=== PATIENT | male | born 1990 | race African-American/Black ===

== ENCOUNTER 2023-06-15 05:15 | Inpatient (IN) | payer OTHER, SELFPAY ==
[2023-06-15] VITALS (11 sets, daily range): BP systolic 101–135; BP diastolic 53–88; PULSE 62–94; RESP 15–20; TEMP 36.6–36.8; O2SAT 92–99; BMI 22.3
--- NOTE | ~2023-06-15 | XR_ITS ---
EXAMINATION: XR CHEST CLINICAL INFORMATION: Chest pain. Leukocytosis. COMPARISON: None available. TECHNIQUE: Frontal view of the chest was obtained. FINDINGS: The lung volumes are low. The cardiomediastinal silhouette is grossly within normal limits. There is a small faint left lung base opacity. The right lung is clear. There are no significant pleural effusion. The bony structures and soft tissues are unremarkable. XR/XR chest 1V IMPRESSION: Small faint left lung base opacity probably atelectasis. Early infiltrate considered less likely.
[2023-06-15] MEDS: 0.9 % Sodium Chloride 1,000 ML 999 ML IV (06:13)
[2023-06-15 06:19] LABS: Hematocrit 21.2 % (42.0-52.0); Hemoglobin 7.4 g/dl (14.0-18.0); Mean Corpuscular HGB Conc 34.9 g/dl (31.0-36.0); Mean Corpuscular Hemoglobin 31.2 pg (27.0-33.0); Mean Corpuscular Volume 89.5 fL (80.0-98.0); Mean Platelet Volume 9.6 fL (9.4-12.4); NRBC Pct Auto 0.9 /100WBC (0.0-0.2); Platelet Count 294 X10*3/uL (160-400); Red Blood Count 2.37 X10*6/uL (4.60-5.80); Red Cell Distribution Width 23.5 % (11.0-16.0); White Blood Count 14.1 X10*3/uL (4.8-10.8)
[2023-06-15 06:20] LABS: Alanine Aminotransferase 22 U/L (0-40); Albumin Level 4.3 g/dL (3.5-5.0); Alkaline Phosphatase 62 U/L (39-117); Anion Gap 14 (12-20); Aspartate Amino Transferase 52 U/L (5-37); Bilirubin Total 2.5 mg/dL (0.0-1.0); Blood Urea Nitrogen 9 mg/dL (9-16); Calcium 9.3 mg/dL (8.4-10.2); Carbon Dioxide 21 mmol/L (22-29); Chloride 106 mmol/L (96-108); Creatinine Clr Calc Pharmacy 130.3; Estimated Glomerular Filt Rate > 60; Glucose Random 113 mg/dL (60-115); Potassium 3.6 mmol/L (3.3-5.1); Sodium 137 mmol/L (135-145); Total Protein 8.5 g/dL (6.5-8.0)
--- NOTE | 2023-06-15 06:33 | PC.NURSE ---
Pt heard yelling from inside of room stating wheres the [place] run doctor, i need some pain medicine, come on! Upon arrival to room pt pacing and Advised that physician is away from desk with another pt at this time and will be with him as soon as possible and states i need to see the yolande doctor now! Pt again advised that a provider will be in as soon as they can and pt back to bed. Provider to be made aware of pt outburst.
--- OUTSIDE RECORDS SUMMARY | 2023-06-15 06:39 | XMS_ITS | Summary of Care ---
/Man Author Name Unknown Organization [facility] Address [address] [place] [address]- [facility] [phone] Care Team Providers Care Computer Tape Librarian Name Role Phone Physician, Nopcp Primary Care Physician Unavaila ble Encounter [facility] [id number] Date(s): 12/24/21 - 12/25/[address] Discharge Disposition: Home Attending Physician: Jerri Canela DO Allergies, Adverse Reactions, Alerts No Known Allergies Social History Social History Type Response
[2023-06-15 06:54] LABS: Basophils Abs Manual 0.1 X10*3/uL (0.0-0.2); Basophils Percent Manual 1 % (0-2); Eosinophils Absolute Manual 0.3 X10*3/uL (0.0-0.4); Eosinophils Percent Manual 2 % (0-4); Lymphocytes Absolute Manual 8.5 X10*3/uL (1.2-4.9); Lymphocytes Percent Manual 60 % (20-40); Monocytes Absolute Manual 0.6 X10*3/uL (0.1-1.2); Monocytes Percent Manual 4 % (2-11); Neutrophils Percent Manual 33 % (45-73)
[2023-06-15 06:55] LABS: Band Neutrophils Percent 0 % (3-5); Neutrophils Absolute Manual 4.7 X10*3/uL (2.0-8.3); Nucleated Red Blood Cells 2 /100WBC (0-0)
[2023-06-15 06:57] LABS: Microcytosis 1+ (5-14) /OIF; RBC Morphology NOTED
[2023-06-15 06:58] LABS: Howell Jolly Bodies PRESENT; Hypochromasia 1+ (5-14) /OIF; Platelet Estimate NORMAL (NORMAL); Platelet Morphology Comment NORMAL; Polychromasia 1+ (0-2) /OIF; Sickle Cells 3+ (>5) /OIF; Target Cells 1+ (5-14) /OIF
--- NOTE | 2023-06-15 06:59 | ED_ITS ---
HPI - General Adult General Chief complaint: General Medical Stated complaint: Sickle cell crisis Time Seen by Provider: 06/15/23 05:54 Source: patient Mode of arrival: ambulatory Limitations: no limitations Related Data Home Medications Medication Instructions Recorded Confirmed folic acid 0.8 mg capsule 0.8 mg PO DAILY 06/15/23 06/15/23 hydromorphone 8 mg tablet 16 mg PO Q8H 06/15/23 06/15/23 multivitamin 1 tab PO DAILY 06/15/23 06/15/23 oxycodone 60 mg tablet,crush 60 mg PO BID 06/15/23 06/15/23 resistant,extended release 12 hr (OxyContin) Allergies Allergy/AdvReac Type Severity Reaction Status Date / Time No Known Allergies Allergy Verified 06/15/23 05:27 Review of Systems 2 Review of Systems: Constitutional : No Weight loss, No Fever, No Chills, No Fatigue, No Malaise ENT/Mouth : No sore throat, No Rhinorrhea Eyes: No Eye Pain, No Swelling, No Redness Cardiovascular : No Chest Pain, No SOB, No Dyspnea on Exertion, No Orthopnea, No Edema, No Palpitations Respiratory : No Cough, No Sputum, No Wheezing Gastrointestinal : No Nausea, No Vomiting, No Diarrhea, No Constipation, No abdominal Pain, No Hematochezia, No Melena Genitourinary : No Dysuria, No Urinary Frequency, No Hematuria, Musculoskeletal : No joint pain, No Myalgias, No Joint Swelling Skin : No Skin Lesions, No rash Neuro : No Weakness, No Numbness, No Dizziness, No Headache Psych : No Anxiety/Panic, No Depression All other systems reviewed and are negative Yes all other systems are reviewed and are negative [facility] Past Medical History Attestation statement: The following information was validated with the patient. Source: old records reviewed and nursing notes reviewed Medical History Functional asplenia Sickle cell anemia with crisis Social History Social History Household Members: Family Housing: House Do you presently have visiting nurse or other home services: No Patient Tobacco Use Status: Never used Tobacco service: No Physical Exam ED Vital Signs: Vital Signs - 24 hr 06/15/23 05:27 06/15/23 05:32 06/15/23 07:13 Pulse Rate 76 85 80 Respiratory Rate 20 15 18 Blood Pressure 125/76 121/67 121/72 Pulse Oximetry 96 95 97 Oxygen Delivery Method Room Air Room Air Room Air BMI result Body Mass Index 22.3 vss Appearance: Alert.? Oriented X3.? No acute distress.? Head: Normocephalic, atraumatic, no step-offs or deformities Eyes: Pupils equal, round and reactive to light.?+ b/l sclera w/ icterus Neck: Normal inspection.? Neck supple.? CVS: Normal heart rate and rhythm.? Pulses normal.? Respiratory: No respiratory distress.? Breath sounds normal.? Abdomen: Soft and nontender.? Skin: Skin warm and dry.? Normal skin color.? Normal skin turgor.? Extremities: No lower extremity edema.? No calf ttp. 5/5 strength to bilateral upper and lower extremities Neuro: Oriented X 3.? No motor deficit.? No sensory deficit. CN 2-12 intact Course Reevaluation(s) Reevaluation #1: CBC w/ leukocytosis, lymphocyte predominance. Reticulocyte count elevated consistent with acute sickle cell crisis. Chemistry with elevated bilirubin, no other acute findings. Normal lactic acid. UA clean. X-ray with question atelectasis versus pneumonia . Due to leukocytosis and history of sickle cell disease will cover with 2 g of ceftriaxone at this time Time: 08:30 Medications Administered Generic Name Dose Route Start Last Admin Trade Name Freq PRN Reason Stop Dose Admin Diphenhydramine HCl 50 mg 06/15/23 11:15 06/17/23 06:05 Diphenhydramine Hcl 50 Mg/Ml Vial IVPUSH 50 mg Q4H PRN Administration Itching Hydromorphone HCl 5 mg 06/15/23 11:15 06/17/23 06:11 Hydromorphone Hcl 2 Mg/Ml Vial IVPUSH 5 mg Q2H PRN Administration Pain, Severe (Pain Scale 7-10) Protocol Sodium Chloride 1,000 mls @ 125 mls/hr 06/15/23 11:30 06/17/23 06:19 Ns IVCONT 125 mls/hr .Q8H SILVIA Administration Ketorolac Tromethamine 30 mg 06/15/23 11:15 06/17/23 06:15 Ketorolac Tromethamine 30 Mg/Ml Vial IVPUSH 06/20/23 05:16 30 mg Q6H SILVIA Administration Multivitamins/Vitamin C 1 tab 06/16/23 09:00 06/16/23 11:11 Multivitamin Tablet PO 1 tab DAILY SILVIA Administration Oxycodone HCl 60 mg 06/15/23 11:30 06/16/23 20:20 Oxycodone Hcl Er 10 Mg Tab.Er.12h PO 60 mg BID SILVIA Administration Sodium Chloride 3 ml 06/15/23 16:00 06/17/23 07:13 0.9 % Sodium Chloride Flush 3 Ml Syringe IVFLUSH Not Given QSHIFT SILVIA Discontinued Medications Generic Name Dose Route Start Last Admin Trade Name Freq PRN Reason Stop Dose Admin Diphenhydramine HCl 25 mg 06/15/23 06:48 06/15/23 07:07 Diphenhydramine Hcl 50 Mg/Ml Vial IVPUSH 06/15/23 06:49 25 mg ONCE ONE Administration Diphenhydramine HCl 25 mg 06/15/23 07:02 06/15/23 07:08 Diphenhydramine Hcl 50 Mg/Ml Vial IVPUSH 06/15/23 07:03 25 mg ONCE ONE Administration Hydromorphone HCl 2 mg 06/15/23 06:56 06/15/23 07:08 Hydromorphone Hcl 2 Mg/Ml Vial IVPUSH 06/15/23 06:57 2 mg ONCE ONE Administration Protocol Hydromorphone HCl 2 mg 06/15/23 07:18 06/15/23 07:31 Hydromorphone Hcl 2 Mg/Ml Vial IVPUSH 06/15/23 07:19 2 mg ONCE ONE Administration Protocol Hydromorphone HCl 4 mg 06/15/23 08:52 06/15/23 09:08 Hydromorphone Hcl 2 Mg/Ml Vial IVPUSH 06/15/23 08:53 4 mg ONCE ONE Administration Protocol Sodium Chloride 1,000 mls @ 999 mls/hr 06/15/23 06:00 06/15/23 07:52 Ns IV 06/15/23 07:00 Infused .Q1H1M SILVIA Infusion Ceftriaxone Sodium 2 gm/ 50 mls @ 100 mls/hr 06/15/23 06:48 06/15/23 08:26 Sodium Chloride IV 06/15/23 07:17 Infused ONCE ONE Infusion Influenza Virus Vaccine 0.5 ml 06/15/23 15:25 06/15/23 16:20 Flu Vacc [id number](6mos Up)/Pf 0.5 Ml Syringe IM 06/15/23 15:26 0.5 ml .ONCE ONE Administration Medical Decision Making Medical Decision Making [facility] Narrative: 0700 33 yo m presents w/ diffuse body pain X 2 days PE- icteric sclera b/l. Sickle cell crisis versus fibromyalgia and a versus viral illness. Will rule out metabolic derangements, infection although unlikely Plan labs, imaging, urine. Patient states he is on a medication care plan at of [facility] where they treat him with 50mg of benadryl and 6 mg of IV dilauded - unable to provide documentation of care plan at this time ( looking for it on his phone) requested records from [facility] patient was seen there at last night and left AMA because the wait was to long had labs done which showed leukocytosis, hyperbili and elevated retic count Differential Diagnosis Differential Diagnoses: The differential diagnosis associated with the presentation includes Sickle cell crisis versus fibromyalgia and a versus viral illness. Will rule out metabolic derangements, infection although unlikely Admission/Observation Consideration of admission/observation: Escalation of care including admission/observation considered Likely Consult Healthcare Provider Management of the patient was discussed with: Hospitalist Lab Data [facility] Lab Attestation statement: I reviewed the patient's lab results. 06/16/23 09:29 06/16/23 09:29 Labs: Lab Results 06/15/23 06/15/23 06/15/23 Range/Units 05:56 05:57 07:26 WBC 14.1 H (4.8-10.8) X10*3/uL RBC 2.37 L (4.60-5.80) X10*6/uL Hgb 7.4 L (14.0-18.0) g/dl Hct 21.2 L (42.0-52.0) % MCV 89.5 (80.0-98.0) fL MCH 31.2 (27.0-33.0) pg MCHC 34.9 (31.0-36.0) g/dl RDW 23.5 H (11.0-16.0) % Plt Count 294 (160-400) X10*3/uL MPV 9.6 (9.4-12.4) fL Immature Gran % (Auto) Cancelled Neut % (Auto) Cancelled Lymph % (Auto) Cancelled [place] % (Auto) Cancelled Eos % (Auto) Cancelled Baso % (Auto) Cancelled Lymph # (Auto) Cancelled [place] # (Auto) Cancelled Eos # (Auto) Cancelled Baso # (Auto) Cancelled Abs Immat Gran (auto) Cancelled Absolute Neuts (auto) Cancelled Absolute Nucleated RBC 0.120 H (0.0-0.012) X10*3/uL Nucleated RBC % (auto) 0.9 H (0.0-0.2) /100WBC Neutrophils % (Manual) 33 L (45-73) % Band Neutrophils % 0 L (3-5) % Lymphocytes % (Manual) 60 H (20-40) % Monocytes % (Manual) 4 (2-11) % Eosinophils % (Manual) 2 (0-4) % Basophils % (Manual) 1 (0-2) % Abs Neuts (Manual) 4.7 (2.0-8.3) X10*3/uL Lymphocytes # (Manual) 8.5 H (1.2-4.9) X10*3/uL Monocytes # (Manual) 0.6 (0.1-1.2) X10*3/uL Eosinophils # (Manual) 0.3 (0.0-0.4) X10*3/uL Basophils # (Manual) 0.1 (0.0-0.2) X10*3/uL Nucleated RBCs 2 H (0-0) /100WBC Platelet Estimate NORMAL (NORMAL) Plt Morphology Comment NORMAL RBC Morphology NOTED Polychromasia 1+ (0-2) /OIF Hypochromasia 1+ (5-14) /OIF Microcytosis 1+ (5-14) /OIF Sickle Cells 3+ (>5) /OIF Target Cells 1+ (5-14) /OIF [place]amy[place] Bodies PRESENT Smear Path Review SEE NOTE Absolute Retic 0.241 H (0.026-0.095) X10*6/uL Percent Retic 10.5 H (0.5-1.8) % Immature Retic Fraction 34.3 H (2.3-13.4) % Retic Hgb Equivalent 29.1 L (30.0-35.0) pg Sodium 137 (135-145) mmol/L Potassium 3.6 (3.3-5.1) mmol/L Chloride 106 (96-108) mmol/L Carbon Dioxide 21 L (22-29) mmol/L Anion Gap 14 (12-20) BUN 9 (9-16) mg/dL Creatinine 0.82 (0.5-1.4) mg/dL Estim Creat Clear Calc 130.3 Estimated GFR > 60 Random Glucose 113 (60-115) mg/dL Lactic Acid 0.8 (0.5-2.0) mmol/L Calcium 9.3 (8.4-10.2) mg/dL Total Bilirubin 2.5 H (0.0-1.0) mg/dL AST 52 H (5-37) U/L ALT 22 (0-40) U/L Alkaline Phosphatase 62 (39-117) U/L Total Creatine Kinase 119 (38-174) U/L Total Protein 8.5 H (6.5-8.0) g/dL Albumin 4.3 (3.5-5.0) g/dL Procalcitonin 0.08 ng/mL Urine Color Urine Appearance Urine pH (5.0-9.0) Ur Specific [place] (1.005-1.025) Urine Protein (Neg-Trace) mg/dL Urine Glucose (UA) (Negative) mg/dL Urine Ketones (Negative) mg/dL Urine Blood (Negative) Urine Nitrite (Negative) Ur Leukocyte Esterase (Negative) Urine RBC (0-2) /HPF Urine WBC (0-5) /HPF Ur Squamous Epith Cells (0-2) /HPF Urine Bacteria (None Seen) Hyaline Casts (0-2) /LPF 06/15/23 Range/Units 07:41 WBC (4.8-10.8) X10*3/uL RBC (4.60-5.80) X10*6/uL Hgb (14.0-18.0) g/dl Hct (42.0-52.0) % MCV (80.0-98.0) fL MCH (27.0-33.0) pg MCHC (31.0-36.0) g/dl RDW (11.0-16.0) % Plt Count (160-400) X10*3/uL MPV (9.4-12.4) fL Immature Gran % (Auto) Neut % (Auto) Lymph % (Auto) [place] % (Auto) Eos % (Auto) Baso % (Auto) Lymph # (Auto) [place] # (Auto) Eos # (Auto) Baso # (Auto) Abs Immat Gran (auto) Absolute Neuts (auto) Absolute Nucleated RBC (0.0-0.012) X10*3/uL Nucleated RBC % (auto) (0.0-0.2) /100WBC Neutrophils % (Manual) (45-73) % Band Neutrophils % (3-5) % Lymphocytes % (Manual) (20-40) % Monocytes % (Manual) (2-11) % Eosinophils % (Manual) (0-4) % Basophils % (Manual) (0-2) % Abs Neuts (Manual) (2.0-8.3) X10*3/uL Lymphocytes # (Manual) (1.2-4.9) X10*3/uL Monocytes # (Manual) (0.1-1.2) X10*3/uL Eosinophils # (Manual) (0.0-0.4) X10*3/uL Basophils # (Manual) (0.0-0.2) X10*3/uL Nucleated RBCs (0-0) /100WBC Platelet Estimate (NORMAL) Plt Morphology Comment RBC Morphology Polychromasia /OIF Hypochromasia /OIF Microcytosis /OIF Sickle Cells /OIF Target Cells /OIF [place] Bodies Smear Path Review Absolute Retic (0.026-0.095) X10*6/uL Percent Retic (0.5-1.8) % Immature Retic Fraction (2.3-13.4) % Retic Hgb Equivalent (30.0-35.0) pg Sodium (135-145) mmol/L Potassium (3.3-5.1) mmol/L Chloride (96-108) mmol/L Carbon Dioxide (22-29) mmol/L Anion Gap (12-20) BUN (9-16) mg/dL Creatinine (0.5-1.4) mg/dL Estim Creat Clear Calc Estimated GFR Random Glucose (60-115) mg/dL Lactic Acid (0.5-2.0) mmol/L Calcium (8.4-10.2) mg/dL Total Bilirubin (0.0-1.0) mg/dL AST (5-37) U/L ALT (0-40) U/L Alkaline Phosphatase (39-117) U/L Total Creatine Kinase (38-174) U/L Total Protein (6.5-8.0) g/dL Albumin (3.5-5.0) g/dL Procalcitonin ng/mL Urine Color Yellow Urine Appearance Clear Urine pH 6.5 (5.0-9.0) Ur Specific [place] 1.010 (1.005-1.025) Urine Protein 30 (1+) H (Neg-Trace) mg/dL Urine Glucose (UA) Negative (Negative) mg/dL Urine Ketones Negative (Negative) mg/dL Urine Blood Trace H (Negative) Urine Nitrite Negative (Negative) Ur Leukocyte Esterase Negative (Negative) Urine RBC 3-5 H (0-2) /HPF Urine WBC 0-5 (0-5) /HPF Ur Squamous Epith Cells 0-2 (0-2) /HPF Urine Bacteria None Seen (None Seen) Hyaline Casts 0-2 (0-2) /LPF Independent Interpretation I performed an independent interpretation of an: Plain X-Ray ( XR/XR chest 1V IMPRESSION: Small faint left lung base opacity probably atelectasis. Early infiltrate considered less likely. ) Radiology Impression Discussion of test interpretation with radiology: I have reviewed the radiologist's reading. External Record Review External record reviewed: Inpatient record, Office record, Outpatient record, Prior outpatient labs, Prior outpatient radiology, Primary care record and Outside ED record Chronic Conditions Patient?s care impacted by: Other (SCD) Critical Care Time Critical Care Time Critical Care Time: Yes Total Critical Care Time: 35 Attestation: I attest to this time spent taking care of the patient, obtaining history, physical, reviewing labs, imaging, speaking to my attending, Discharge Plan Discharge Clinical Impression: Sickle cell anemia with crisis Patient Disposition: Admitted As Inpatient Interventions: Admission Worksheet (ED) Last Done: 06/15/23 15:07 Discharge Date/Time: 06/15/23 15:08
--- NOTE | 2023-06-15 06:59 | MHC.EDTECH ---
THIS PCT ATTEMPT TO DRAW ,PATIENT LACTIC AND BLOOD CULTURE ,BUT PATIENT REFUSED AT THIS TIME ,STATED HE WANTS HIS PAIN MEDS BEFORE BEING POKED ,BHARGAV SERRA AWARE .
[2023-06-15 07:05] LABS: Immature Retic Fraction 34.3 % (2.3-13.4); Retic HGB Equivalent 29.1 pg (30.0-35.0); Reticulocytes Absolute 0.241 X10*6/uL (0.026-0.095)
[2023-06-15 07:06] LABS: Reticulocyte Percent 10.5 % (0.5-1.8)
[2023-06-15] MEDS: diphenhydrAMINE HCL 50 MG/ML VIAL 25 MG IVPUSH ×2 (07:07→07:08)
[2023-06-15] MEDS: HYDROmorphone HCl 2 MG/ML VIAL IVPUSH ×2 (07:08→07:31)
--- NOTE | 2023-06-15 07:20 | PC.NURSE ---
pt is alert and oriented, skin appropriate for ethnicity, respirations even and unlabored, pt reports generalized body pain do to his sickle cell dx, pt just moved this direction from [place], pt usually gets care at [facility]- pt was able to pull up his care plan on his phone and this short story writer showed it to Gilda HANNAH, pt receives Benadryl 50mg, diulated 5mg, torodal 30mg, and NS for his pain/crisis flare ups. vs stable at this time
[2023-06-15 07:40] LABS: Lactic Acid 0.8 mmol/L (0.5-2.0)
[2023-06-15] MEDS: cefTRIAXone sodium 2 GM in 0.9 % Sodium Chloride 50 ML IV (07:48)
[2023-06-15 07:53] LABS: Appearance Urine Clear; Color Urine Yellow; Glucose Urine UA Negative (Negative); Leukocyte Esterase Urine Negative (Negative); Nitrite Urine Negative (Negative); PH 6.5 (5.0-9.0); UMIC TRIGGER UACC YES; Urine Blood Trace (Negative); Urine Ketones Negative (Negative); Urine Protein 30 (1+) mg/dL (Neg-Trace)
[2023-06-15 08:05] LABS: Bacteria Urine None Seen (None Seen); Hyaline Casts Urine 0-2 /LPF (0-2); Squamous Epithelial Cell Urine 0-2 /HPF (0-2); WBC Urine 0-5 /HPF (0-5)
--- NOTE | 2023-06-15 09:05 | PC.NURSE ---
pt started to scream at staff/provider that he needs his pain medication right now, this editorial writer explained to the pt that this behavior is extremely inappropriate, pt actually apologized to this rn pt shortly medicated with pain medications pt oxygen level dropped a little even prior to administering the pain medication sating art 92% on room air, pt put on 2l via nasal cannual and sating at 95%
[2023-06-15] MEDS: HYDROmorphone HCl 2 MG/ML VIAL 4 MG IVPUSH (09:08)
--- NOTE | 2023-06-15 09:53 | PHA.MEDREC ---
Pharmacy Consult ? Medication Reconciliation Pharmacy has completed the medication reconciliation. Spoke to patient, asked about OxyContin, he said he takes 60mg BID despite recent claim history for 40mg on 06/13/23. Previous fill was for 60mg in April. Pt also states taking 16mg hydromorphone Q8H
--- NOTE | 2023-06-15 10:27 | PC.NURSE ---
pt is currently sleeping, respirations even and unlabored
--- NOTE | 2023-06-15 11:17 | P.HPHOSP_ITS ---
History of Present Illness Date of Service: 06/15/23 Attending physician on admission: Madhavi Schmidt Chief Complaint: Sickle cell crisis Pt is a 33-year-old male with a PMH significant for?sickle cell anemia, who presents to the ED with? In the ED patient was afebrile with pulse solids 94, normotensive, and satting 97% on RA. Labs were significant for leukocytosis of 14.4, H&H 7.4/21.2, absolute reticulocytes 0.241, % reticulocytes 10.5, T bili 2 point, AST 52. Electrolytes WNL. Renal function WNL. Lactic acid WNL at 0 8. UA negative for UTI. CXR showed small faint left lung base opacity probably atelectasis with early infiltrate less likely. Pt was treated with IVF, Benadryl 25 mg x 2 doses; Dilaudid 2 mg x 2 doses and 4 mg x 1 dose, ceftriaxone 2 g. Pt will be admitted to the hospital [facility] Social History Smoked in Last 30 Days: No Use of substances other than those prescribed or required for medical reasons: No Advance Directives: No Advance Directives Information Provided: Yes Meds Allergies Allergy/AdvReac Type Severity Reaction Status Date / Time No Known Allergies Allergy Verified 06/15/23 05:27 Home Medications Medication Instructions Recorded Confirmed Last Taken Type folic acid 0.8 mg capsule 0.8 mg PO DAILY 06/15/23 06/15/23 Unknown History hydromorphone 8 mg tablet 16 mg PO Q8H 06/15/23 06/15/23 Unknown History multivitamin 1 tab PO DAILY 06/15/23 06/15/23 Unknown History oxycodone 60 mg tablet,crush 60 mg PO BID 06/15/23 06/15/23 Unknown History resistant,extended release 12 hr (OxyContin) Physical Exam 2 Vital Signs and Narrative: Vital Signs: Last Vital Signs Temp 98.0 F 06/15/23 10:51 Pulse 87 06/15/23 10:51 Resp 16 06/15/23 10:51 BP 123/69 06/15/23 10:51 Pulse Ox 99 06/15/23 10:51 O2 Del Method Room Air, Nasal C annula 06/15/23 10:51 O2 Flow Rate 2 06/15/23 10:51 BMI result Body Mass Index 22.3 Results Labs 06/15/23 05:57 06/15/23 05:56 Labs: Laboratory Results - last 24 hr 06/15/23 06/15/23 06/15/23 05:56 05:57 07:26 MCV 89.5 MCH 31.2 MCHC 34.9 RDW 23.5 H Plt Count 294 MPV 9.6 Immature Gran % (Auto) Cancelled Neut % (Auto) Cancelled Lymph % (Auto) Cancelled [place] % (Auto) Cancelled Eos % (Auto) Cancelled Baso % (Auto) Cancelled Lymph # (Auto) Cancelled [place] # (Auto) Cancelled Eos # (Auto) Cancelled Baso # (Auto) Cancelled Abs Immat Gran (auto) Cancelled Absolute Neuts (auto) Cancelled Absolute Nucleated RBC 0.120 H Nucleated RBC % (auto) 0.9 H Neutrophils % (Manual) 33 L Band Neutrophils % 0 L Lymphocytes % (Manual) 60 H Monocytes % (Manual) 4 Eosinophils % (Manual) 2 Basophils % (Manual) 1 Abs Neuts (Manual) 4.7 Lymphocytes # (Manual) 8.5 H Monocytes # (Manual) 0.6 Eosinophils # (Manual) 0.3 Basophils # (Manual) 0.1 Nucleated RBCs 2 H Platelet Estimate NORMAL Plt Morphology Comment NORMAL RBC Morphology NOTED Polychromasia 1+ (0-2) Hypochromasia 1+ (5-14) Microcytosis 1+ (5-14) Sickle Cells 3+ (>5) Target Cells 1+ (5-14) [place] Bodies PRESENT Absolute Retic 0.241 H Percent Retic 10.5 H Immature Retic Fraction 34.3 H Retic Hgb Equivalent 29.1 L Anion Gap 14 Estim Creat Clear Calc 130.3 Estimated GFR > 60 Random Glucose 113 Lactic Acid 0.8 Calcium 9.3 Total Bilirubin 2.5 H AST 52 H ALT 22 Alkaline Phosphatase 62 Total Creatine Kinase 119 Total Protein 8.5 H Albumin 4.3 Urine Color Urine Appearance Urine pH Ur Specific [place] Urine Protein Urine Glucose (UA) Urine Ketones Urine Blood Urine Nitrite Ur Leukocyte Esterase Urine RBC Urine WBC Ur Squamous Epith Cells Urine Bacteria Hyaline Casts 06/15/23 07:41 MCV MCH MCHC RDW Plt Count MPV Immature Gran % (Auto) Neut % (Auto) Lymph % (Auto) [place] % (Auto) Eos % (Auto) Baso % (Auto) Lymph # (Auto) [place] # (Auto) Eos # (Auto) Baso # (Auto) Abs Immat Gran (auto) Absolute Neuts (auto) Absolute Nucleated RBC Nucleated RBC % (auto) Neutrophils % (Manual) Band Neutrophils % Lymphocytes % (Manual) Monocytes % (Manual) Eosinophils % (Manual) Basophils % (Manual) Abs Neuts (Manual) Lymphocytes # (Manual) Monocytes # (Manual) Eosinophils # (Manual) Basophils # (Manual) Nucleated RBCs Platelet Estimate Plt Morphology Comment RBC Morphology Polychromasia Hypochromasia Microcytosis Sickle Cells Target Cells [place] Bodies Absolute Retic Percent Retic Immature Retic Fraction Retic Hgb Equivalent Anion Gap Estim Creat Clear Calc Estimated GFR Random Glucose Lactic Acid Calcium Total Bilirubin AST ALT Alkaline Phosphatase Total Creatine Kinase Total Protein Albumin Urine Color Yellow Urine Appearance Clear Urine pH 6.5 Ur Specific [place] 1.010 Urine Protein 30 (1+) H Urine Glucose (UA) Negative Urine Ketones Negative Urine Blood Trace H Urine Nitrite Negative Ur Leukocyte Esterase Negative Urine RBC 3-5 H Urine WBC 0-5 Ur Squamous Epith Cells 0-2 Urine Bacteria None Seen Hyaline Casts 0-2 Imaging Radiologist's Impressions: Impressions Chest X-Ray 06/15/23 07:45 IMPRESSION: Small faint left lung base opacity probably atelectasis. Early infiltrate considered less likely. Assessment and Plan Time Spent With Patient Time: Total time managing care of this patient today ____ minutes.
--- NOTE | 2023-06-15 11:46 | PM.IMHP ---
History of Present Illness Date of Service: 06/15/23 Chief Complaint: back/leg pain 33yo M with sickle cell disease and functional asplenia who was recently admitted to [facility] 05/28-06/10 for vaso-occlusive pain crisis. He has outpatient and inpatient pain management plans documented in [facility], to which I have access. He recently moved to [place] and presents today with 2 days of worsening upper and lower back as well as bilateral leg pain. No fever, chills, cough, congestion, sore throat, dyspnea, nausea, vomiting, or diarrhea. No chest pain. His baseline Hb is around 6.5-7 and his transfusion threshold is 5. He is intolerant of hydroxyurea due to skin ulcers. In the ED, he was found to have Hb 7.4 with 10.5% reticulocytes. Total bilirubin 2.5. AST 52, ALT 22. He was given 1L IV NS, 2g of IV ceftriaxone, 25mg of IV diphenhydramine x2, and total of 8mg of IV hydromorphone. Review of Systems Review of Systems: Yes all other systems are reviewed and are negative [facility] Medical History Functional asplenia Sickle cell anemia with crisis Social History Smoked in Last 30 Days: No Use of substances other than those prescribed or required for medical reasons: No Advance Directives: No Advance Directives Information Provided: Yes Meds Allergies Allergy/AdvReac Type Severity Reaction Status Date / Time No Known Allergies Allergy Verified 06/15/23 05:27 Active Medications: Current Medications Acetaminophen (Acetaminophen 325 Mg Tablet) 975 mg PO Q6H PRN PRN Reason: mild-moderate pain Diphenhydramine HCl (Diphenhydramine Hcl 50 Mg/Ml Vial) 50 mg IVPUSH Q4H PRN PRN Reason: Itching Hydromorphone HCl (Hydromorphone Hcl 2 Mg/Ml Vial) 5 mg IVPUSH Q2H PRN; Protocol PRN Reason: Pain, Severe (Pain Scale 7-10) Sodium Chloride (Ns) 1,000 mls @ 125 mls/hr IVCONT .Q8H [facility] Ketorolac Tromethamine (Ketorolac Tromethamine 30 Mg/Ml Vial) 30 mg IVPUSH Q6H [facility] Stop: 06/20/23 05:16 Multivitamins/Vitamin C (Multivitamin Tablet) 1 tab PO DAILY [facility] Ondansetron HCl (Ondansetron Hcl 4 Mg/2 Ml Vial) 4 mg IVPUSH Q6H PRN PRN Reason: Nausea and Vomiting Oxycodone HCl (Oxycodone Hcl Er 10 Mg Tab.Er.12h) 60 mg PO BID [facility] Sodium Chloride (0.9 % Sodium Chloride Flush 3 Ml Syringe) 3 ml IVFLUSH QSHIFT [facility] Home Medications Medication Instructions Recorded Confirmed Last Taken Type folic acid 0.8 mg capsule 0.8 mg PO DAILY 06/15/23 06/15/23 Unknown History hydromorphone 8 mg tablet 16 mg PO Q8H 06/15/23 06/15/23 Unknown History multivitamin 1 tab PO DAILY 06/15/23 06/15/23 Unknown History oxycodone 60 mg tablet,crush 60 mg PO BID 06/15/23 06/15/23 Unknown History resistant,extended release 12 hr (OxyContin) Physical Exam Vital Signs and Narrative: Vital Signs: Last Vital Signs Temp 98.0 F 06/15/23 10:51 Pulse 87 06/15/23 10:51 Resp 16 06/15/23 10:51 BP 123/69 06/15/23 10:51 Pulse Ox 99 06/15/23 10:51 O2 Del Method Room Air, Nasal C annula 06/15/23 10:51 O2 Flow Rate 2 06/15/23 10:51 BMI result Body Mass Index 22.3 Gen: in pain HEENT: sclera anicteric, moist mucus membranes Neck: supple Lungs: clear to auscultation bilaterally Heart: regular rate and rhythm, no murmurs Abd: soft, non-tender, non-distended Ext: no edema Skin: warm/well-perfused Neuro: alert and oriented x3, no focal findings Psych: appropriate affect Results Labs 06/15/23 05:57 06/15/23 05:56 Labs: Laboratory Results - last 24 hr 06/15/23 06/15/23 06/15/23 05:56 05:57 07:26 MCV 89.5 MCH 31.2 MCHC 34.9 RDW 23.5 H Plt Count 294 MPV 9.6 Immature Gran % (Auto) Cancelled Neut % (Auto) Cancelled Lymph % (Auto) Cancelled Fisher % (Auto) Cancelled Eos % (Auto) Cancelled Baso % (Auto) Cancelled Lymph # (Auto) Cancelled Fisher # (Auto) Cancelled Eos # (Auto) Cancelled Baso # (Auto) Cancelled Abs Immat Gran (auto) Cancelled Absolute Neuts (auto) Cancelled Absolute Nucleated RBC 0.120 H Nucleated RBC % (auto) 0.9 H Neutrophils % (Manual) 33 L Band Neutrophils % 0 L Lymphocytes % (Manual) 60 H Monocytes % (Manual) 4 Eosinophils % (Manual) 2 Basophils % (Manual) 1 Abs Neuts (Manual) 4.7 Lymphocytes # (Manual) 8.5 H Monocytes # (Manual) 0.6 Eosinophils # (Manual) 0.3 Basophils # (Manual) 0.1 Nucleated RBCs 2 H Platelet Estimate NORMAL Plt Morphology Comment NORMAL RBC Morphology NOTED Polychromasia 1+ (0-2) Hypochromasia 1+ (5-14) Microcytosis 1+ (5-14) Sickle Cells 3+ (>5) Target Cells 1+ (5-14) [place] Bodies PRESENT Absolute Retic 0.241 H Percent Retic 10.5 H Immature Retic Fraction 34.3 H Retic Hgb Equivalent 29.1 L Anion Gap 14 Estim Creat Clear Calc 130.3 Estimated GFR > 60 Random Glucose 113 Lactic Acid 0.8 Calcium 9.3 Total Bilirubin 2.5 H AST 52 H ALT 22 Alkaline Phosphatase 62 Total Creatine Kinase 119 Total Protein 8.5 H Albumin 4.3 Urine Color Urine Appearance Urine pH Ur Specific [place] Urine Protein Urine Glucose (UA) Urine Ketones Urine Blood Urine Nitrite Ur Leukocyte Esterase Urine RBC Urine WBC Ur Squamous Epith Cells Urine Bacteria Hyaline Casts 06/15/23 07:41 MCV MCH MCHC RDW Plt Count MPV Immature Gran % (Auto) Neut % (Auto) Lymph % (Auto) Fisher % (Auto) Eos % (Auto) Baso % (Auto) Lymph # (Auto) Fisher # (Auto) Eos # (Auto) Baso # (Auto) Abs Immat Gran (auto) Absolute Neuts (auto) Absolute Nucleated RBC Nucleated RBC % (auto) Neutrophils % (Manual) Band Neutrophils % Lymphocytes % (Manual) Monocytes % (Manual) Eosinophils % (Manual) Basophils % (Manual) Abs Neuts (Manual) Lymphocytes # (Manual) Monocytes # (Manual) Eosinophils # (Manual) Basophils # (Manual) Nucleated RBCs Platelet Estimate Plt Morphology Comment RBC Morphology Polychromasia Hypochromasia Microcytosis Sickle Cells Target Cells [place] Bodies Absolute Retic Percent Retic Immature Retic Fraction Retic Hgb Equivalent Anion Gap Estim Creat Clear Calc Estimated GFR Random Glucose Lactic Acid Calcium Total Bilirubin AST ALT Alkaline Phosphatase Total Creatine Kinase Total Protein Albumin Urine Color Yellow Urine Appearance Clear Urine pH 6.5 Ur Specific [place] 1.010 Urine Protein 30 (1+) H Urine Glucose (UA) Negative Urine Ketones Negative Urine Blood Trace H Urine Nitrite Negative Ur Leukocyte Esterase Negative Urine RBC 3-5 H Urine WBC 0-5 Ur Squamous Epith Cells 0-2 Urine Bacteria None Seen Hyaline Casts 0-2 Imaging Radiologist's Impressions: Impressions Chest X-Ray 06/15/23 07:45 IMPRESSION: Small faint left lung base opacity probably atelectasis. Early infiltrate considered less likely. Assessment and Plan (1) Sickle cell anemia with crisis: Status: Acute Plan 33yo M with SCD presenting with vaso-occlusive pain crisis sickle cell crisis - admit to med/surg - give IV fluids + monitor for signs of infection [currently none] - reviewed inpatient pain management plan from [facility], will order APAP 975 mg PO q6h prn mild-mod pain, oxycodone ER 60 mg q12h standing, hydromorphone 5 mg IV q2h prn severe pain, ketorolac 30 mg q6h x 5d, diphenhydramine 50 mg IV q4h prn itching - transfusion goal of 5 as per [facility] VTE ppx - SCDs dispo - eventual home code - full I anticipate that the patient will stay at least 2 midnights as an inpatient in the hospital due to the above reasons. It is neither reasonable nor safe to care for them in a less acute setting. Time Spent With Patient Time: Total time managing care of this patient today ____ minutes. Quality Stroke Does the patient have a stroke diagnosis?: No VTE Prior VTE?: No VTE Risk Level:: Medical - moderate - high VTE Device Contraindication: N/A - Device Ordered VTE Drug Contraindication: Treatment Not Indicated
[2023-06-15] MEDS: Ketorolac Tromethamine 30 MG/ML VIAL IVPUSH ×3 (11:50→21:43)
[2023-06-15] MEDS: 0.9 % Sodium Chloride 1,000 ML 125 ML IVCONT ×2 (11:50→20:02)
[2023-06-15] MEDS: HYDROmorphone HCl 2 MG/ML VIAL 5 MG IVPUSH ×6 (12:01→23:22)
[2023-06-15] MEDS: diphenhydrAMINE HCL 50 MG/ML VIAL IVPUSH ×3 (12:01→20:40)
[2023-06-15] MEDS: oxyCODONE HCl ER 10 MG TAB.ER.12H 60 MG PO ×2 (12:41→21:41)
--- NOTE | 2023-06-15 12:45 | PC.NURSE ---
report given to ken guevara at overflow
[2023-06-15 12:53] LABS: Procalcitonin 0.08 ng/mL
--- NOTE | 2023-06-15 15:06 | PC.NURSE ---
Patient requested prn diluadid, medicated per oct. Resting comfortably without s/s of pain or discomfort. Report given to accepting unit and transport notified.
[2023-06-15] MEDS: 0.9 % Sodium Chloride Flush 3 ML SYRINGE IVFLUSH (16:24)
[2023-06-16] VITALS (8 sets, daily range): BP systolic 99–113; BP diastolic 53–74; PULSE 67–84; RESP 16–18; TEMP 36.1–36.7; O2SAT 91–95
[2023-06-16] MEDS: HYDROmorphone HCl 2 MG/ML VIAL 5 MG IVPUSH ×10 (01:25→22:32)
[2023-06-16] MEDS: diphenhydrAMINE HCL 50 MG/ML VIAL IVPUSH ×5 (01:26→20:22)
[2023-06-16] MEDS: 0.9 % Sodium Chloride 1,000 ML 125 ML IVCONT ×3 (03:26→20:20)
[2023-06-16] MEDS: Ketorolac Tromethamine 30 MG/ML VIAL IVPUSH ×4 (05:30→22:32)
[2023-06-16 09:39] LABS: Hemoglobin 7.1 g/dl (14.0-18.0); Mean Corpuscular Hemoglobin 32.7 pg (27.0-33.0); Mean Corpuscular Volume 88.5 fL (80.0-98.0); Mean Platelet Volume 9.4 fL (9.4-12.4); Platelet Count 330 X10*3/uL (160-400); Red Blood Count 2.17 X10*6/uL (4.60-5.80); Red Cell Distribution Width 23.2 % (11.0-16.0); White Blood Count 11.8 X10*3/uL (4.8-10.8)
[2023-06-16 09:53] LABS: Alanine Aminotransferase 16 U/L (0-40); Albumin Level 3.9 g/dL (3.5-5.0); Alkaline Phosphatase 55 U/L (39-117); Anion Gap 12 (12-20); Aspartate Amino Transferase 47 U/L (5-37); Bilirubin Total 2.1 mg/dL (0.0-1.0); Blood Urea Nitrogen 9 mg/dL (9-16); Calcium 8.6 mg/dL (8.4-10.2); Carbon Dioxide 22 mmol/L (22-29); Chloride 110 mmol/L (96-108); Creatinine Clr Calc Pharmacy 142.4; Estimated Glomerular Filt Rate > 60; Glucose Random 106 mg/dL (60-115); Potassium 4.1 mmol/L (3.3-5.1); Sodium 140 mmol/L (135-145); Total Protein 7.9 g/dL (6.5-8.0)
[2023-06-16 09:56] LABS: NRBC Pct Auto 1.1 /100WBC (0.0-0.2)
[2023-06-16 09:57] LABS: Hematocrit 19.2 % (42.0-52.0)
--- NOTE | 2023-06-16 10:53 | P.PNIM_ITS ---
Subjective Subjective Date of Service: 06/16/23 Interval History: leg and back pain still severe no cough or fever Review of Systems Review of Systems: Yes all other systems are reviewed and are negative Physical Exam 2 Vital Signs: Vital Signs: Last Vital Signs Temp 96.9 F 06/16/23 07:46 Pulse 74 06/16/23 07:46 Resp 16 06/16/23 07:46 BP 99/53 L 06/16/23 07:46 Pulse Ox 92 06/16/23 07:46 O2 Del Method Room Air 06/16/23 07:46 O2 Flow Rate 2 06/15/23 16:24 BMI result Body Mass Index 22.3 Gen: in no acute distress HEENT: sclera anicteric, moist mucus membranes Neck: supple Lungs: clear to auscultation bilaterally Heart: regular rate and rhythm, no murmurs Abd: soft, non-tender, non-distended Ext: no edema Skin: warm/well-perfused Neuro: alert and oriented x3, no focal findings Psych: appropriate affect Objective Data Active Medications Acetaminophen (Acetaminophen 325 Mg Tablet) 975 mg PO Q6H PRN PRN Reason: mild-moderate pain Diphenhydramine HCl (Diphenhydramine Hcl 50 Mg/Ml Vial) 50 mg IVPUSH Q4H PRN PRN Reason: Itching Last Admin: 06/16/23 05:30 Dose: 50 mg Documented By: MARTA Hydromorphone HCl (Hydromorphone Hcl 2 Mg/Ml Vial) 5 mg IVPUSH Q2H PRN; Protocol PRN Reason: Pain, Severe (Pain Scale 7-10) Last Admin: 06/16/23 08:25 Dose: 5 mg Documented By: SD Sodium Chloride (Ns) 1,000 mls @ 125 mls/hr IVCONT .Q8H [facility] Last Admin: 06/16/23 03:26 Dose: 125 mls/hr Documented By: MARTA Ketorolac Tromethamine (Ketorolac Tromethamine 30 Mg/Ml Vial) 30 mg IVPUSH Q6H [facility] Stop: 06/20/23 05:16 Last Admin: 06/16/23 05:30 Dose: 30 mg Documented By: MARTA Multivitamins/Vitamin C (Multivitamin Tablet) 1 tab PO DAILY [facility] Ondansetron HCl (Ondansetron Hcl 4 Mg/2 Ml Vial) 4 mg IVPUSH Q6H PRN PRN Reason: Nausea and Vomiting Oxycodone HCl (Oxycodone Hcl Er 10 Mg Tab.Er.12h) 60 mg PO BID [facility] Last Admin: 06/15/23 21:41 Dose: 60 mg Documented By: MARTA Sodium Chloride (0.9 % Sodium Chloride Flush 3 Ml Syringe) 3 ml IVFLUSH QSHIFT [facility] Last Admin: 06/16/23 08:30 Dose: Not Given Documented By: SD Non-Admin Reason: IV Running Labs 06/16/23 09:29 06/16/23 09:29 Labs: Laboratory Results - last 24 hr 06/15/23 06/15/23 06/16/23 05:56 05:57 09:29 MCV 88.5 MCH 32.7 MCHC 37.0 H RDW 23.2 H Plt Count 330 MPV 9.4 Absolute Nucleated RBC 0.130 H Nucleated RBC % (auto) 1.1 H Smear Path Review SEE NOTE Anion Gap 12 Estim Creat Clear Calc 142.4 Estimated GFR > 60 Random Glucose 106 Calcium 8.6 D Total Bilirubin 2.1 H AST 47 H ALT 16 Alkaline Phosphatase 55 Total Protein 7.9 Albumin 3.9 Procalcitonin 0.08 Microbiology Microbiology Results: Microbiology 06/15/23 07:41 Blood Culture - Preliminary Blood - Venous No growth after 24 hours. 06/15/23 07:26 Blood Culture - Preliminary Blood - Venous No growth after 24 hours. Assessment and Plan (1) Sickle cell anemia with crisis: Status: Acute Plan d2 33yo M with SCD presenting with vaso-occlusive pain crisis sickle cell crisis - continue IV fluids - per [facility] inpatient management plan, APAP 975 mg PO q6h prn mild-mod pain, oxycodone ER 60 mg q12h standing, hydromorphone 5 mg IV q2h prn severe pain, ketorolac 30 mg q6h x 5d, diphenhydramine 50 mg IV q4h prn itching - transfusion goal of 5 as per [facility] VTE ppx - SCDs dispo - eventual home Time Spent With Patient Time: Total time managing care of this patient today ___35_ minutes. Quality Stroke Does the patient have a stroke diagnosis?: No VTE Prior VTE?: No VTE Risk Level:: Medical - moderate - high VTE Device Contraindication: N/A - Device Ordered VTE Drug Contraindication: Treatment Not Indicated
[2023-06-16] MEDS: oxyCODONE HCl ER 10 MG TAB.ER.12H 60 MG PO ×2 (11:11→20:20)
[2023-06-16] MEDS: Multivitamin TABLET 1 TAB PO (11:11)
--- NOTE | 2023-06-16 14:21 | MHC.CM.PN ---
Pt lives independently, no home health services. CM asked if he wanted info on PCP, he declined, and if he wanted to complete HCP, he decined. He is able to obtain transport home upon DC, plan is home, self care. CM to follow and assist with DC plan.
[2023-06-16] MEDS: 0.9 % Sodium Chloride Flush 3 ML SYRINGE IVFLUSH (22:33)
--- NOTE | 2023-06-17 00:29 | PC.NURSE ---
Assumed care of patient 19:00 (06/16). Pt A&Ox4. Complains of pain in his back and BLE, here for sickle cell crisis. Pt denies chest pain, dizziness, vision changes, sob, and n/v. Medicated with scheduled and prn pain medications as ordered and appropriate with +effect per pt report. NS infusing as ordered. VSS. See EMAR and shift assessment for full details. Safety measures in place. Handoff report given 23:15.
[2023-06-17 00:37] VITALS: BP 121/69; PULSE 72
[2023-06-17] MEDS: diphenhydrAMINE HCL 50 MG/ML VIAL IVPUSH ×6 (00:52→22:58)
[2023-06-17] MEDS: HYDROmorphone HCl 2 MG/ML VIAL 5 MG IVPUSH ×4 (00:55→08:11)
--- NOTE | 2023-06-17 01:01 | PC.NURSE ---
Patient asking for dilaudid 5mg and benadryl 50mg, and stating, do not dilute my pain meds . Explained to patient that we have protocols for dilution of certain IV medications.
[2023-06-17 03:28] VITALS: BP 103/61; PULSE 74; RESP 18; TEMP 36.3; O2SAT 96
[2023-06-17 05:50] VITALS: BP 111/67; PULSE 77
[2023-06-17] MEDS: Ketorolac Tromethamine 30 MG/ML VIAL IVPUSH ×4 (06:15→23:14)
[2023-06-17] MEDS: 0.9 % Sodium Chloride 1,000 ML 125 ML IVCONT (06:19)
[2023-06-17 07:53] VITALS: BP 113/69; PULSE 69; RESP 18; TEMP 36.7; O2SAT 92
--- NOTE | 2023-06-17 09:41 | HO.PM.IMPN ---
Subjective Subjective Date of Service: 06/17/23 Interval History: c/o severe low back and bilateral leg pain no fever/cough Review of Systems Review of Systems: Yes all other systems are reviewed and are negative Physical Exam Vital Signs: Vital Signs: Last Vital Signs Temp 98.1 F 06/17/23 07:53 Pulse 69 06/17/23 07:53 Resp 18 06/17/23 07:53 BP 113/69 06/17/23 07:53 Pulse Ox 92 06/17/23 07:53 O2 Del Method Room Air 06/17/23 07:53 O2 Flow Rate 2 06/15/23 16:24 BMI result Body Mass Index 22.3 Gen: in pain HEENT: sclera anicteric, moist mucus membranes Neck: supple Lungs: clear to auscultation bilaterally Heart: regular rate and rhythm, no murmurs Abd: soft, non-tender, non-distended Ext: no edema Skin: warm/well-perfused Neuro: alert and oriented x3, no focal findings Psych: appropriate affect Objective Data Active Medications Acetaminophen (Acetaminophen 325 Mg Tablet) 975 mg PO Q6H PRN PRN Reason: mild-moderate pain Diphenhydramine HCl (Diphenhydramine Hcl 50 Mg/Ml Vial) 50 mg IVPUSH Q4H PRN PRN Reason: Itching Last Admin: 06/17/23 06:05 Dose: 50 mg Documented By: JUAN Hydromorphone HCl (Hydromorphone Hcl 2 Mg/Ml Vial) 5 mg IVPUSH Q2H PRN; Protocol PRN Reason: Pain, Severe (Pain Scale 7-10) Last Admin: 06/17/23 08:11 Dose: 5 mg Documented By: YANNA Sodium Chloride (Ns) 1,000 mls @ 125 mls/hr IVCONT .Q8H [facility] Last Admin: 06/17/23 06:19 Dose: 125 mls/hr Documented By: JUAN Ketorolac Tromethamine (Ketorolac Tromethamine 30 Mg/Ml Vial) 30 mg IVPUSH Q6H [facility] Stop: 06/20/23 05:16 Last Admin: 06/17/23 06:15 Dose: 30 mg Documented By: JUAN Multivitamins/Vitamin C (Multivitamin Tablet) 1 tab PO DAILY [facility] Last Admin: 06/16/23 11:11 Dose: 1 tab Documented By: SD Ondansetron HCl (Ondansetron Hcl 4 Mg/2 Ml Vial) 4 mg IVPUSH Q6H PRN PRN Reason: Nausea and Vomiting Oxycodone HCl (Oxycodone Hcl Er 10 Mg Tab.Er.12h) 60 mg PO BID [facility] Last Admin: 06/16/23 20:20 Dose: 60 mg Documented By: TIKI Sodium Chloride (0.9 % Sodium Chloride Flush 3 Ml Syringe) 3 ml IVFLUSH QSHIFT [facility] Last Admin: 06/17/23 07:13 Dose: Not Given Documented By: YANNA Non-Admin Reason: IV Running Labs 06/16/23 09:29 06/16/23 09:29 Labs: Laboratory Results - last 24 hr 06/16/23 09:29 MCV 88.5 MCH 32.7 MCHC 37.0 H RDW 23.2 H Plt Count 330 MPV 9.4 Absolute Nucleated RBC 0.130 H Nucleated RBC % (auto) 1.1 H Anion Gap 12 Estim Creat Clear Calc 142.4 Estimated GFR > 60 Random Glucose 106 Calcium 8.6 D Total Bilirubin 2.1 H AST 47 H ALT 16 Alkaline Phosphatase 55 Total Protein 7.9 Albumin 3.9 Microbiology Microbiology Results: Microbiology 06/15/23 07:26 Blood Culture - Preliminary Blood - Venous No growth after 48 hours. 06/15/23 07:41 Blood Culture - Preliminary Blood - Venous No growth after 24 hours. Assessment and Plan (1) Sickle cell anemia with crisis: Status: Acute Plan d3 33yo M with SCD presenting with vaso-occlusive pain crisis sickle cell crisis - continue IV fluids - per [facility] [place], APAP 975 mg PO q6h prn mild-mod pain, oxycodone ER 60 mg q12h standing, hydromorphone 5->6 mg IV q2h prn severe pain, ketorolac 30 mg q6h x 5d, diphenhydramine 50 mg IV q4h prn itching - transfusion goal of 5 as per [facility] VTE ppx - SCDs dispo - eventual home Time Spent With Patient Time: Total time managing care of this patient today ___35_ minutes. Quality Stroke Does the patient have a stroke diagnosis?: No VTE Prior VTE?: No VTE Risk Level:: Medical - moderate - high VTE Device Contraindication: N/A - Device Ordered VTE Drug Contraindication: Treatment Not Indicated
[2023-06-17] MEDS: Multivitamin TABLET 1 TAB PO (10:11)
[2023-06-17] MEDS: oxyCODONE HCl ER 10 MG TAB.ER.12H 60 MG PO ×2 (10:11→20:46)
[2023-06-17] MEDS: HYDROmorphone HCl 2 MG/ML VIAL 6 MG IVPUSH ×7 (10:11→22:58)
[2023-06-17 15:38] VITALS: BP 123/80; PULSE 79; RESP 20; TEMP 36.6; O2SAT 95
[2023-06-17] MEDS: 0.9 % Sodium Chloride Flush 3 ML SYRINGE IVFLUSH ×2 (16:26→20:47)
[2023-06-17 19:42] VITALS: BP 107/60; PULSE 69; RESP 18; TEMP 36.6; O2SAT 97
[2023-06-18] MEDS: HYDROmorphone HCl 2 MG/ML VIAL 6 MG IVPUSH ×11 (01:05→22:51)
[2023-06-18 03:00] VITALS: BP 130/71; PULSE 65; RESP 18; TEMP 36.4; O2SAT 98
[2023-06-18] MEDS: diphenhydrAMINE HCL 50 MG/ML VIAL IVPUSH ×6 (03:20→20:52)
[2023-06-18] MEDS: Ketorolac Tromethamine 30 MG/ML VIAL IVPUSH ×4 (05:47→22:51)
[2023-06-18 06:26] LABS: Hemoglobin 7.1 g/dl (14.0-18.0); Mean Corpuscular Hemoglobin 32.9 pg (27.0-33.0); Mean Corpuscular Volume 88.9 fL (80.0-98.0); Mean Platelet Volume 9.6 fL (9.4-12.4); Platelet Count 318 X10*3/uL (160-400); Red Blood Count 2.16 X10*6/uL (4.60-5.80); White Blood Count 14.1 X10*3/uL (4.8-10.8)
[2023-06-18 06:47] LABS: Hematocrit 19.2 % (42.0-52.0)
[2023-06-18 07:05] LABS: Alanine Aminotransferase 19 U/L (0-40); Alkaline Phosphatase 60 U/L (39-117); Anion Gap 13 (12-20); Aspartate Amino Transferase 50 U/L (5-37); Bilirubin Total 2.4 mg/dL (0.0-1.0); Blood Urea Nitrogen 7 mg/dL (9-16); Calcium 8.8 mg/dL (8.4-10.2); Carbon Dioxide 20 mmol/L (22-29); Chloride 108 mmol/L (96-108); Creatinine Clr Calc Pharmacy 136.9; Estimated Glomerular Filt Rate > 60; Glucose Random 95 mg/dL (60-115); Potassium 4.3 mmol/L (3.3-5.1); Sodium 137 mmol/L (135-145); Total Protein 8.1 g/dL (6.5-8.0)
[2023-06-18 07:16] LABS: Lactate Dehydrogenase 676 U/L (118-273)
[2023-06-18 07:40] VITALS: BP 110/68; PULSE 64; RESP 18; TEMP 36.1; O2SAT 92
[2023-06-18] MEDS: 0.9 % Sodium Chloride Flush 3 ML SYRINGE IVFLUSH ×3 (07:45→20:52)
--- NOTE | 2023-06-18 09:08 | P.PNIM_ITS ---
Subjective Subjective Date of Service: 06/18/23 Interval History: pain 6/10 in lower back and legs no fever no cough Review of Systems Review of Systems: Yes all other systems are reviewed and are negative Physical Exam 2 Vital Signs: Vital Signs: Last Vital Signs Temp 96.9 F 06/18/23 07:40 Pulse 64 06/18/23 07:40 Resp 18 06/18/23 07:40 BP 110/68 06/18/23 07:40 Pulse Ox 92 06/18/23 07:40 O2 Del Method Room Air 06/18/23 07:40 O2 Flow Rate 2 06/15/23 16:24 BMI result Body Mass Index 22.3 Gen: in pain HEENT: sclera anicteric, moist mucus membranes Neck: supple Lungs: clear to auscultation bilaterally Heart: regular rate and rhythm, no murmurs Abd: soft, non-tender, non-distended Ext: no edema Skin: warm/well-perfused Neuro: alert and oriented x3, no focal findings Psych: appropriate affect Objective Data Active Medications Acetaminophen (Acetaminophen 325 Mg Tablet) 975 mg PO Q6H PRN PRN Reason: mild-moderate pain Diphenhydramine HCl (Diphenhydramine Hcl 50 Mg/Ml Vial) 50 mg IVPUSH Q4H PRN PRN Reason: Itching Last Admin: 06/18/23 07:45 Dose: 50 mg Documented By: YANNA Hydromorphone HCl (Hydromorphone Hcl 2 Mg/Ml Vial) 6 mg IVPUSH Q2H PRN; Protocol PRN Reason: Pain, Severe (Pain Scale 7-10) Last Admin: 06/18/23 07:46 Dose: 6 mg Documented By: YANNA Ketorolac Tromethamine (Ketorolac Tromethamine 30 Mg/Ml Vial) 30 mg IVPUSH Q6H [facility] Stop: 06/20/23 05:16 Last Admin: 06/18/23 05:47 Dose: 30 mg Documented By: JOÃO Multivitamins/Vitamin C (Multivitamin Tablet) 1 tab PO DAILY [facility] Last Admin: 06/17/23 10:11 Dose: 1 tab Documented By: YANNA Ondansetron HCl (Ondansetron Hcl 4 Mg/2 Ml Vial) 4 mg IVPUSH Q6H PRN PRN Reason: Nausea and Vomiting Oxycodone HCl (Oxycodone Hcl Er 10 Mg Tab.Er.12h) 60 mg PO BID [facility] Last Admin: 06/17/23 20:46 Dose: 60 mg Documented By: JOÃO Sodium Chloride (0.9 % Sodium Chloride Flush 3 Ml Syringe) 3 ml IVFLUSH QSHIFT [facility] Last Admin: 06/18/23 07:45 Dose: 3 ml Documented By: YANNA Labs 06/18/23 06:06 06/18/23 06:06 Labs: Laboratory Results - last 24 hr 06/18/23 06:06 MCV 88.9 MCH 32.9 MCHC 37.0 H RDW 23.0 H Plt Count 318 MPV 9.6 Absolute Nucleated RBC 0.140 H Nucleated RBC % (auto) 1.0 H Anion Gap 13 Estim Creat Clear Calc 136.9 Estimated GFR > 60 Random Glucose 95 Calcium 8.8 Total Bilirubin 2.4 H AST 50 H ALT 19 Alkaline Phosphatase 60 Lactate Dehydrogenase 676 H Total Protein 8.1 H Albumin 4.0 Microbiology Microbiology Results: Microbiology 06/15/23 07:41 Blood Culture - Preliminary Blood - Venous No growth after 48 hours. 06/15/23 07:26 Blood Culture - Preliminary Blood - Venous No growth after 48 hours. Assessment and Plan (1) Sickle cell anemia with crisis: Status: Acute Plan d4 33yo M with SCD presenting with vaso-occlusive pain crisis sickle cell crisis - d/c IV fluids - per [facility] inpatient management plan, APAP 975 mg PO q6h prn mild-mod pain, oxycodone ER 60 mg q12h standing, hydromorphone 5->6 mg IV q2h prn severe pain, ketorolac 30 mg q6h x 5d, diphenhydramine 50 mg IV q4h prn itching - transfusion goal of 5 as per [facility], Hb today is 7.1 VTE ppx - SCDs dispo - eventual home Time Spent With Patient Time: Total time managing care of this patient today __35__ minutes. Quality Stroke Does the patient have a stroke diagnosis?: No VTE Prior VTE?: No VTE Risk Level:: Medical - moderate - high VTE Device Contraindication: N/A - Device Ordered VTE Drug Contraindication: Treatment Not Indicated
[2023-06-18] MEDS: Multivitamin TABLET 1 TAB PO (10:06)
[2023-06-18] MEDS: oxyCODONE HCl ER 10 MG TAB.ER.12H 60 MG PO ×2 (10:07→20:51)
[2023-06-18 15:38] VITALS: BP 116/63; PULSE 66; RESP 18; TEMP 36.2; O2SAT 93
[2023-06-18 20:00] VITALS: BP 112/61; PULSE 79; RESP 18; TEMP 36.2; O2SAT 93
[2023-06-19] MEDS: diphenhydrAMINE HCL 50 MG/ML VIAL IVPUSH ×6 (00:49→20:34)
[2023-06-19] MEDS: HYDROmorphone HCl 2 MG/ML VIAL 6 MG IVPUSH ×8 (00:49→20:34)
--- NOTE | 2023-06-19 01:38 | PC.NURSE ---
Addendum entered by Kelley Garcia RN 06/19/23 06:33: Pt c/o indigestion like stomach pain, Dr. Brower was notifoed, Tums chewable tab ordered, med given, instructed pt to notify RN if no relief. Original Note: Pt seen on bed watching movies on his personal laptop, pt got upset when prn Dilaudid was brought in late for few minutes, pt was re educated that Dilaudid is given as needed and not scheduled, pt still reports 7/1o legs and back pain, and relieved at 5-6/10 after meds, pt, pt has been asking for Dilaudid every 2 hrs, seen snacking and po intake is favorable. Pt felt pain and lump on IV site with scheduled Ketorolac given, pt was instructed that he may need a new Ivline placed, pt refused at this time. Pt rung for Dilaudid and Benadryl around 0050, was able to give Benadryl but pt felt the pain again, advised to have a new IV insertion, still refusing and insisted on IV dilaudid to be given, all meds were given, pt agreed to have new iv inserted at this time. FR 22 inserted aseptically on the left hand successfully. Pt requested for another Benadryl IV dose , he claimed he didnt feel the effect of the first one, Dr. Brower was notified and another cdose of Benadryl Iv was given, will follow up
[2023-06-19 04:00] VITALS: BP 121/67; PULSE 75; RESP 18; TEMP 36.3; O2SAT 95
[2023-06-19] MEDS: Ketorolac Tromethamine 30 MG/ML VIAL IVPUSH ×2 (05:05→11:14)
[2023-06-19] MEDS: Calcium Carbonate 750 MG TAB.CHEW PO (06:32)
[2023-06-19] MEDS: Bismuth Subsalicylate 262 MG TABLET PO (07:07)
[2023-06-19 07:28] VITALS: BP 113/69; PULSE 66; RESP 16; TEMP 36.2; O2SAT 94
[2023-06-19] MEDS: 0.9 % Sodium Chloride Flush 3 ML SYRINGE IVFLUSH (09:01)
[2023-06-19] MEDS: oxyCODONE HCl ER 10 MG TAB.ER.12H 60 MG PO ×2 (09:02→20:06)
[2023-06-19] MEDS: Multivitamin TABLET 1 TAB PO (09:02)
--- NOTE | 2023-06-19 09:49 | HO.PM.IMPN ---
Subjective Subjective Date of Service: 06/19/23 Interval History: Complaining of abdominal pain, tolerating diet no nausea no vomiting,no constipation, complaining of leg pain and feels not ready for discharge, denies fever, no lightheadedness or dizziness, no urinary symptoms. Review of Systems All other system reviewed and negative Physical Exam Vital Signs: Vital Signs: Last Vital Signs Temp 97.2 F 06/19/23 07:28 Pulse 66 06/19/23 07:28 Resp 16 06/19/23 07:28 BP 113/69 06/19/23 07:28 Pulse Ox 94 06/19/23 07:28 O2 Del Method Room Air 06/19/23 07:28 O2 Flow Rate 2 06/15/23 16:24 BMI result Body Mass Index 22.3 Const: Other: Gen: Awake alert in no acute distress HEENT: sclera anicteric, moist mucus membranes Neck: supple Lungs: clear to auscultation bilaterally Heart: regular rate and rhythm, no murmurs Abd: soft, non-tender, non-distended Ext: no edema Skin: warm/well-perfused Neuro: alert and oriented x3, no focal findings Psych: appropriate affect Objective Data Active Medications Acetaminophen (Acetaminophen 325 Mg Tablet) 975 mg PO Q6H PRN PRN Reason: mild-moderate pain Calcium Carbonate (Calcium Carbonate 750 Mg Tab.Chew) 750 mg PO Q6H PRN PRN Reason: Indigestion Last Admin: 06/19/23 06:32 Dose: 750 mg Documented By: JONATHON Diphenhydramine HCl (Diphenhydramine Hcl 50 Mg/Ml Vial) 50 mg IVPUSH Q4H PRN PRN Reason: Itching Last Admin: 06/19/23 09:02 Dose: 50 mg Documented By: KORTNEY Hydromorphone HCl (Hydromorphone Hcl 2 Mg/Ml Vial) 6 mg IVPUSH Q2H PRN; Protocol PRN Reason: Pain, Severe (Pain Scale 7-10) Last Admin: 06/19/23 09:01 Dose: 6 mg Documented By: KORTNEY Ketorolac Tromethamine (Ketorolac Tromethamine 30 Mg/Ml Vial) 30 mg IVPUSH Q6H [facility] Stop: 06/20/23 05:16 Last Admin: 06/19/23 05:05 Dose: 30 mg Documented By: JONATHON Multivitamins/Vitamin C (Multivitamin Tablet) 1 tab PO DAILY [facility] Last Admin: 06/19/23 09:02 Dose: 1 tab Documented By: KORTNEY Ondansetron HCl (Ondansetron Hcl 4 Mg/2 Ml Vial) 4 mg IVPUSH Q6H PRN PRN Reason: Nausea and Vomiting Oxycodone HCl (Oxycodone Hcl Er 10 Mg Tab.Er.12h) 60 mg PO BID [facility] Last Admin: 06/19/23 09:02 Dose: 60 mg Documented By: KORTNEY Sodium Chloride (0.9 % Sodium Chloride Flush 3 Ml Syringe) 3 ml IVFLUSH QSHIFT [facility] Last Admin: 06/19/23 09:01 Dose: 3 ml Documented By: KORTNEY Labs 06/18/23 06:06 06/18/23 06:06 Assessment and Plan (1) Sickle cell anemia with crisis: Status: Acute Plan 33yo M with SCD presenting with vaso-occlusive pain crisis sickle cell crisis - complaining of leg pain - [place] [facility] [place], APAP 975 mg PO q6h prn mild-mod pain, oxycodone ER 60 mg q12h standing, hydromorphone 6 mg IV q2h prn severe pain, ketorolac 30 mg q6h x 5d, diphenhydramine 50 mg IV q4h prn itching - transfusion goal of 5 as per [facility], Hb today is 7.1 Since patient clinically looks stable with normal vitals, stable hematocrit, tolerating diet discussed with patient to wean Dilaudid to 6 mg q.3 hours but as per patient he stays in hospital sometimes for 2 weeks on above medications and then transitioned to by mouth home medications and get discharged home. He VTE ppx - SCDs dispo - eventual home Time Spent With Patient Time: Total time managing care of this patient today ____ minutes. Quality Stroke Does the patient have a stroke diagnosis?: No VTE Prior VTE?: No VTE Risk Level:: Medical - moderate - high VTE Device Contraindication: N/A - Device Ordered VTE Drug Contraindication: Treatment Not Indicated
--- NOTE | 2023-06-19 15:12 | MHC.CM.PN ---
no dc date forpt at this time dc plan remains home no servies
[2023-06-19 15:36] VITALS: BP 110/55; PULSE 70; RESP 18; TEMP 36.7; O2SAT 93
--- NOTE | 2023-06-19 18:09 | PC.NURSE ---
MD Sloan aware patient currently has no IV access. At 1633 requested PRN pain medication, IV was flushed, Pt stated flush felt fine, after administration of PRN Dilaudid and then NaCl flush, pt stated the IV was burning. Floor RN attempted to place IV but pt refused nurses attempt, Pt stated I am all scar tissue . Acid Conditioning Worker Ryan called to bedside but IV attempt was unsuccessful. Acid Conditioning Worker stated she would make a call to ED to assist with IV placement, pt aware.
[2023-06-19 20:00] VITALS: BP 115/56; PULSE 91; RESP 19; TEMP 36.9; O2SAT 93
[2023-06-20] MEDS: Ketorolac Tromethamine 30 MG/ML VIAL IVPUSH ×3 (00:28→04:36)
[2023-06-20] MEDS: diphenhydrAMINE HCL 50 MG/ML VIAL IVPUSH ×4 (00:33→21:20)
[2023-06-20] MEDS: 0.9 % Sodium Chloride Flush 3 ML SYRINGE IVFLUSH ×2 (00:34→08:55)
[2023-06-20] MEDS: HYDROmorphone HCl 2 MG/ML VIAL 6 MG IVPUSH ×4 (00:34→21:25)
[2023-06-20 03:25] VITALS: BP 106/58; PULSE 77; RESP 16; TEMP 36.2; O2SAT 93
[2023-06-20 07:19] VITALS: BP 109/60; PULSE 66; RESP 16; TEMP 36.6; O2SAT 92
[2023-06-20] MEDS: oxyCODONE HCl ER 10 MG TAB.ER.12H 60 MG PO ×2 (10:34→21:19)
[2023-06-20] MEDS: Multivitamin TABLET 1 TAB PO (10:34)
--- NOTE | 2023-06-20 11:17 | P.PNIM_ITS ---
Subjective Subjective Date of Service: 06/20/23 Interval History: Feeling better tolerating diet no nausea, no vomiting, no abdominal pain, admits to have less leg discomfort. ambulating to bathroom. no lightheadedness, no dizziness no other acute issues overnight. Review of Systems All other system reviewed and negative. Physical Exam 2 Vital Signs: Vital Signs: Last Vital Signs Temp 97.8 F 06/20/23 07:19 Pulse 66 06/20/23 07:19 Resp 16 06/20/23 07:19 BP 109/60 06/20/23 07:19 Pulse Ox 92 06/20/23 07:19 O2 Del Method Room Air 06/20/23 07:19 O2 Flow Rate 2 06/15/23 16:24 BMI result Body Mass Index 22.3 Const: Other: Gen: Awake alert in no acute distress HEENT: sclera anicteric, moist mucus membranes Neck: supple Lungs: clear to auscultation bilaterally Heart: regular rate and rhythm, no murmurs. Abd: soft, non-tender, non-distended. Ext: no edema. Skin: warm/well-perfused. Neuro: alert and oriented x3, no focal findings. Psych: appropriate affect. Objective Data Active Medications Acetaminophen (Acetaminophen 325 Mg Tablet) 975 mg PO Q6H PRN PRN Reason: mild-moderate pain Calcium Carbonate (Calcium Carbonate 750 Mg Tab.Chew) 750 mg PO Q6H PRN PRN Reason: Indigestion Last Admin: 06/19/23 06:32 Dose: 750 mg Documented By: JONATHON Diphenhydramine HCl (Diphenhydramine Hcl 50 Mg/Ml Vial) 50 mg IVPUSH Q4H PRN PRN Reason: Itching Last Admin: 06/20/23 08:49 Dose: 50 mg Documented By: JOAQUINA Hydromorphone HCl (Hydromorphone Hcl 2 Mg/Ml Vial) 6 mg IVPUSH Q4H PRN; Protocol PRN Reason: Pain, Severe (Pain Scale 7-10) Multivitamins/Vitamin C (Multivitamin Tablet) 1 tab PO DAILY [facility] Last Admin: 06/20/23 10:34 Dose: 1 tab Documented By: JOAQUINA Ondansetron HCl (Ondansetron Hcl 4 Mg/2 Ml Vial) 4 mg IVPUSH Q6H PRN PRN Reason: Nausea and Vomiting Oxycodone HCl (Oxycodone Hcl Er 10 Mg Tab.Er.12h) 60 mg PO BID [facility] Last Admin: 06/20/23 10:34 Dose: 60 mg Documented By: JOAQUINA Sodium Chloride (0.9 % Sodium Chloride Flush 3 Ml Syringe) 3 ml IVFLUSH QSHIFT [facility] Last Admin: 06/20/23 08:55 Dose: 3 ml Documented By: JOAQUINA Labs 06/18/23 06:06 06/18/23 06:06 Microbiology Microbiology Results: Microbiology 06/15/23 07:41 Blood Culture - Final Blood - Venous No growth after 5 days. 06/15/23 07:26 Blood Culture - Final Blood - Venous No growth after 5 days. Assessment and Plan (1) Sickle cell anemia with crisis: Status: Acute Plan 33yo M with SCD presenting with vaso-occlusive pain crisis sickle cell crisis - feels like pain is improving, ambulating to bathroom without difficulty. - per [facility] inpatient management plan, APAP 975 mg PO q6h prn mild-mod pain, oxycodone ER 60 mg q12h standing, hydromorphone 6 mg IV q2h prn severe pain, ketorolac 30 mg q6h x 5d, diphenhydramine 50 mg IV q4h prn itching - transfusion goal of 5 as per [facility], Hb today is 7.1 Since patient clinically looks stable with normal vitals, stable hematocrit, tolerating diet discussed with patient will wean Dilaudid to 6 mg q.4 hours. Recommend out of bed to chair and ambulation possible discharge home tomorrow. VTE ppx - SCDs dispo - eventual home Time Spent With Patient Time: Total time managing care of this patient today ____ minutes. Quality Stroke Does the patient have a stroke diagnosis?: No VTE Prior VTE?: No VTE Risk Level:: Medical - moderate - high VTE Device Contraindication: N/A - Device Ordered VTE Drug Contraindication: Treatment Not Indicated
[2023-06-20 15:16] VITALS: BP 110/62; PULSE 65; RESP 16; TEMP 36.4; O2SAT 94
[2023-06-20 19:15] VITALS: BP 109/62; PULSE 84; RESP 18; TEMP 37.2; O2SAT 93
[2023-06-20 19:21] VITALS: BP 128/66; PULSE 88; RESP 16; TEMP 36.4; O2SAT 97
[2023-06-21] MEDS: diphenhydrAMINE HCL 50 MG/ML VIAL IVPUSH ×4 (01:16→13:25)
[2023-06-21] MEDS: 0.9 % Sodium Chloride Flush 3 ML SYRINGE IVFLUSH ×2 (01:16→09:32)
[2023-06-21] MEDS: HYDROmorphone HCl 2 MG/ML VIAL 6 MG IVPUSH ×4 (01:18→13:24)
[2023-06-21 04:00] VITALS: RESP 20
[2023-06-21 07:38] VITALS: BP 107/58; PULSE 77; RESP 18; TEMP 36.6; O2SAT 92
--- NOTE | 2023-06-21 10:29 | P.DS_ITS ---
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 He has outpatient and inpatient pain management plans documented in [facility], to which I have access. He recently moved to [place] and presents today with 2 days of worsening upper and lower back as well as bilateral leg pain. No fever, chills, cough, congestion, sore throat, dyspnea, nausea, vomiting, or diarrhea. No chest pain. His baseline Hb is around 6.5-7 and his transfusion threshold is 5. He is intolerant of hydroxyurea due to skin ulcers. In the ED, he was found to have Hb 7.4 with 10.5% reticulocytes. Total bilirubin 2.5. AST 52, ALT 22. He was given 1L IV NS, 2g of IV ceftriaxone, 25mg of IV diphenhydramine x2, and total of 8mg of IV hydromorphone. Hospital course: 33yo M with SCD presenting with vaso-occlusive pain crisis , treated with pain management as per [facility] recommendation APAP 975 mg PO q6h prn mild-mod pain, oxycodone ER 60 mg q12h standing, hydromorphone 6 mg IV q2h prn severe pain, ketorolac 30 mg q6h x 5d, diphenhydramine 50 mg IV q4h prn itching, transfusion goal of 5 as per [facility], Patient hemoglobin remained above 7.1 did not require blood transfusion, his pain improved, on day of discharge he is noted to be comfortable with stable vitals, ambulated to bathroom, had normal bowel movement, since patient looks clinically stable he is being discharged home to resume home medications, and recommended outpatient follow-up with primary care physician and primary executor of estate. Time Attestation Discharge coordination time: Greater than 30 minutes Quality: Safe Use of Opioids Does Pt have an Active Cancer Diagnosis on the Problem List?: No Quality: Stroke Does the patient have a stroke diagnosis?: No Physical Exam Vital Signs: Vital Signs: Last Vital Signs Temp 97.9 F 06/21/23 07:38 Pulse 77 06/21/23 07:38 Resp 18 06/21/23 07:38 BP 107/58 L 06/21/23 07:38 Pulse Ox 92 06/21/23 07:38 O2 Del Method Room Air 06/21/23 07:38 O2 Flow Rate 2 06/15/23 16:24 BMI result Body Mass Index 22.3 Const: Other: Gen: Awake alert in no acute distress HEENT: sclera anicteric, moist mucus membranes Neck: supple Lungs: clear to auscultation bilaterally Heart: regular rate and rhythm, no murmurs. Abd: soft, non-tender, non-distended. Ext: no edema. Skin: warm/well-perfused. Neuro: alert and oriented x3, no focal findings. Psych: appropriate affect. Discharge Plan Discharge Anticipated Discharge Date/Time: 06/21/23 10:27 Patient Disposition: Home, Self-Care Discharge Diagnosis: Sickle cell crisis Referrals: Physician,Unknown J [Primary Care Provider] - 1 Week Discharge Medications: Continued multivitamin Tablet 1 tab PO DAILY hydromorphone 8 mg tablet 16 mg PO Q8H folic acid 0.8 mg Capsule 0.8 mg PO DAILY oxycodone [OxyContin] 60 mg tablet,oral only,ext.rel.12 hr 60 mg PO BID Discharge Orders: Discharge Order (Routine); Ordered 06/21/23 Ordered By: Zack Sloan Diet: Advance to usual diet Activity on Discharge: As tolerated Stand Alone Forms: Patient Portal Discharge page Care Plan Goals: stable hematocrit and vitals Continue home medications Health Concerns: Sickle cell disease Plan of Treatment: Outpatient follow-up with Hematology and primary care physician as previously planned Assessment: As above
--- NOTE | 2023-06-21 10:33 | MHC.CM.PN ---
pt dcd home no servies
[2023-06-21] MEDS: Multivitamin TABLET 1 TAB PO (10:47)
[2023-06-21] MEDS: oxyCODONE HCl ER 10 MG TAB.ER.12H 60 MG PO (10:47)
== END 2023-06-21 14:18 | disposition home or self-care (01) | DRG 662 ==
LOC: HO.ED 08:30 → HO.EDOVER 11:45 → HO.S3 14:23
PROVIDERS: Physician Assistant; Admitting Provider Family Medicine; Emergency Provider Student in an Organized Health Care Education/Training Program; Visit Provider Hospitalist
DX: D57.00 Hb-SS disease with crisis, unspecified (principal); Z23 Encounter for immunization; Z79.899 Other long term (current) drug therapy
CPT/HCPCS: 36415; 71045; 80053; 81001; 82550; 83605; 83615; 84145; 85007; 85027; 85045; 87040; 90686; 99285; J0696; J1170; J1200; J1885

== ENCOUNTER → 2023-06-15 11:19 | Outpatient (BNV) | payer OTHER, SELFPAY | PROVIDERS: Admitting Provider Family Medicine; Emergency Provider Student in an Organized Health Care Education/Training Program; Visit Provider Family Medicine | DX: D57.00 Hb-SS disease with crisis, unspecified (principal) | CPT/HCPCS: 99223; 99232; 99233; 99239 ==